=== PATIENT | female | born 1955 | race Caucasian/White ===

== ENCOUNTER 2019-04-25 11:27 | Day surgery (SDC) | payer MEDICARE, SELFPAY ==
[2019-04-22 11:04] VITALS: BMI 35.4
--- NOTE | 2019-04-22 11:16 | ANES.PREANES ---
Pre-Anesthetic Assessment Pre-Anesthetic Assessment: Height/Weight: Height 1.78 m Weight 112.037 kg Preop Diagnosis: Difficulty in swallowing Proposed Procedure: Operation Date: 04/25/19 12:15 Proposed Procedures s Lap Band Adjustment [id number] k21.9(Not Applicable) - Miller Cain MD p EGD(Not Applicable) - Miller Cain MD Exam: Pre-Anes Outpt Exam: alert and oriented x 3 GI: Comments: s/p gastic band placed 2011, # decrease in weight Metabolic: Metabolic: DM Comments: Rx'd x 18 years, normally 100-200 Anesthetic Plan: ASA status: III Anesthesia: MAC PFSH Anesthesia PFSH: Medical History (Updated 04/14/19 @ 10:09 by Miller Cain MD) Complication of gastric banding (Acute) Social History Smoking and tobacco status: never smoked Second hand smoke exposure: No Smoking risk assessment/counseling performed?: No Alcohol intake: never Desire information about alcohol rehabilitation?: No Counseling given: No Desire information about substance/drug rehabilitation?: No Counseling given: No Current gender identity: Male Data Anesthesia Cardiac Studies: No Data to Display
--- NOTE | 2019-04-25 | SCC_ITS ---
Procedure Done: Adjustment of gastric band and diagnostic EGD 5.3 seconds of fluoroscopic guidance, for a cumulative dose of 1.70 mGy, was provided to Dr. Cain by the radiology department. C-arm images of the abdomen were saved for the patient's permanent record. MTDD
--- NOTE | 2019-04-25 | XR_ITS ---
WS: [id number] C-ARM RADIOGRAPHS ABDOMEN; 2 IMAGES HISTORY: OR COMPARISON: None available. Intraoperative imaging during tube placement over the mid LEFT abdomen. XR/XR abdomen 1V* [id number] IMPRESSION: Intraoperative imaging during GI tract procedure.
[2019-04-25 11:42] VITALS: BP 135/88; PULSE 75; RESP 18; TEMP 36.6; O2SAT 97
[2019-04-25] MEDS: sodium chloride 0.9% 1,000 ML 30 ML IV (12:22)
--- NOTE | 2019-04-25 12:32 | PM.HPUD ---
H&P update H&P Update: DATE OF SURGERY/PROCEDURE: 04/25/19 DATE H&P PERFORMED: 04/14/19 H&P UPDATE INFORMATION: H&P completed within last 30 days and No changes to prior documentation PREOP DIAGNOSIS: Persistent nausea and vomiting associated with gastric band PLANNED PROCEDURE: Operation Date: 04/25/19 13:00 Proposed Procedures s Lap Band Adjustment [id number] k21.9(Not Applicable) - Miller Cain MD p EGD(Not Applicable) - Miller Cain MD Full H&P Medications/Allergies: Current Medications: Current Medications Generic Name Dose Route Start Last Admin Trade Name Freq PRN Reason Stop Dose Admin Sodium Chloride 1,000 mls @ 30 ml s/hr 04/25/19 12:15 04/25/19 12:22 Sodium Chloride 0.9% IV 04/26/19 12:14 30 mls/hr .Q24H DAVIAN Administration Perinent History: Medical/Surgical History: Medical History (Updated 04/14/19 @ 10:09 by Miller Cain MD) Complication of gastric banding (Acute) Family History: Family History (Updated 04/12/19 @ 08:56 by Roberta Abraham RN) Denies family history of Anesthesia complication Bleeding disorder Social History: Social History Smoking and tobacco status: never smoked Second hand smoke exposure: No Smoking risk assessment/counseling performed?: No Alcohol intake: never Desire information about alcohol rehabilitation?: No Counseling given: No Desire information about substance/drug rehabilitation?: No Counseling given: No Current gender identity: Male
[2019-04-25] MEDS: lidocaine 2% INJ 20 mL INJECTION (12:50)
--- NOTE | 2019-04-25 13:07 | PM.OP ---
Operative Report Date of procedure: 04/27/19 Pre-op Diagnosis: Persistent nausea and vomiting associated with gastric band Post-op diagnosis: same Post-op Findings: The band port contains 5 mL of saline Procedure Done: Adjustment of gastric band and diagnostic EGD Specimens removed/disposition: 5 mL from the port Surgeon: Miller Cain [employer] Room Service Supervisor: Drake Lane Circulating nurse genny Anesthesia: MAC (AUTO SERVICE REPRESENTATIVE Ej) Estimated blood loss (mL): 1 Complications: No immediate complications Findings: GE at 40 cm GERD AGB at 43 Condition: stable Disposition: same day Brief History: This is a pleasant 63 years old female patient with history of obesity, undergone few years ago a laparoscopic adjustable gastric band at outside facility, and patient has been struggling with persistent nausea and vomiting, last time she had adjustment of her band was a while ago and she does not recall how much fluid in her band. Patient was referred to my office for further evaluation. An attempt to aspirate the fluid from her band was done in the office bedside but that was not successful, as the port seemed to be deeper than expected, at that point I elected to have the patient come to the OR under C arm fluoroscopy and also to perform a diagnostic EGD. Patient had an upper GI study that showed no complications of her band Informed consent per chart for adjustment of gastric band and diagnostic EGD Procedure: Patient was identified in holding area, was taken to the operating room and was placed in supine position IV propofol was infused by the anesthesia provider Time-out was done verifying the patient's name and the procedure and all were in agreement After prep and drape of the upper abdomen under sterile technique, I attempted using a Villareal needle 1.5 inch connected to 10 mL syringe, under C arm with fluoroscopy guidance I was able to access the port, 5 mL were retrieved. Patient tolerated this part of the procedure well A Band-Aid was applied onto the site of introduction of the Villareal needle, were no complications Attention was then deviated to perform the diagnostic EGD after placing the patient in left lateral position, I did introduce the EGD via the mouth there was no evidence of band erosion onto the stomach. GE junction at 40 cm from the incisors, the band marked at 43 cm, and the rest of the examination of the stomach and duodenum was within normal limits except for mild GERD at the distal esophagus. Patient tolerated the procedure well And was taken to the recovery area in stable condition I was present for the whole entire procedure
[2019-04-25 13:08] VITALS: BP 133/80; PULSE 78; RESP 16; TEMP 36.8; O2SAT 97
[2019-04-25 13:13] VITALS: BP 116/62; PULSE 74; RESP 14; O2SAT 99
[2019-04-25 13:20] VITALS: BP 104/78; PULSE 70; RESP 13; TEMP 37.1; O2SAT 98
[2019-04-25 13:26] VITALS: BP 133/70; PULSE 68; RESP 18; TEMP 37.1; O2SAT 99
[2019-04-25 13:39] VITALS: BP 121/65; PULSE 70; RESP 18; O2SAT 98
[2019-04-25 14:18] LABS: Glucose Point of Care 169 mg/dL (70-110)
== END 2019-04-25 13:48 | disposition home or self-care (01) ==
PROVIDERS: Family Provider Nurse Practitioner Primary Care; PCP Nurse Practitioner Primary Care; Visit Provider Surgery
PROC: 0DJ08ZZ Inspection of Upper Intestinal Tract, Via Natural or Artificial Opening Endoscopic (ICD-10-PCS; CPT 43235; 2019-04-25 13:00)
PROC: (CPT 43999; 2019-04-25 13:00)
DX: K95.09 Other complications of gastric band procedure (principal); R11.2 Nausea with vomiting, unspecified
CPT/HCPCS: 43235; 43999; 12345; 36415; 36416; 74018; 76000; 82962; 96365; J2001; J2704; J7030

== ENCOUNTER → 2020-01-03 09:24 | Outpatient (BNVA) | payer MEDICARE, SELFPAY | PROVIDERS: Family Provider Nurse Practitioner Primary Care; PCP Nurse Practitioner Primary Care; Referring Provider Nurse Practitioner Primary Care; Visit Provider Orthopaedic Surgery | DX: M17.0 Bilateral primary osteoarthritis of knee (principal); M25.561 Pain in right knee; M25.562 Pain in left knee | CPT/HCPCS: 73560; 73565 ==

== ENCOUNTER → 2020-05-18 15:44 | Outpatient (BNVA) | payer MEDICARE, SELFPAY | PROVIDERS: Family Provider Nurse Practitioner Primary Care; PCP Nurse Practitioner Primary Care; Referring Provider Dermatology; Visit Provider Podiatrist Foot & Ankle Surgery | DX: M79.672 Pain in left foot (principal) | CPT/HCPCS: 73610; 73630 ==

== ENCOUNTER → 2020-08-30 08:39 | Outpatient (BNVA) | payer MEDICARE, SELFPAY | PROVIDERS: Family Provider Nurse Practitioner Primary Care; PCP Nurse Practitioner Primary Care; Visit Provider Podiatrist Foot & Ankle Surgery | DX: M79.672 Pain in left foot (principal); Z46.89 Encounter for fitting and adjustment of other specified devices; M76.62 Achilles tendinitis, left leg | CPT/HCPCS: 73610; 73630; 97760; L4397 ==

== ENCOUNTER 2020-08-30 11:12 | Outpatient (CLI) | payer MEDICARE, SELFPAY | END 2020-08-30 11:13 | disposition home or self-care (01) | LOC: SPT 11:13 | PROVIDERS: Family Provider Nurse Practitioner Primary Care; PCP Nurse Practitioner Primary Care; Visit Provider Podiatrist Foot & Ankle Surgery | DX: Z46.89 Encounter for fitting and adjustment of other specified devices (principal); M76.62 Achilles tendinitis, left leg | CPT/HCPCS: 97760; L4397 ==

== ENCOUNTER 2020-09-14 11:16 | Outpatient (CLI) | payer MEDICARE, SELFPAY ==
--- NOTE | 2020-09-14 11:25 | MM_ITS ---
WS: [id number] BILATERAL SCREENING DIGITAL MAMMOGRAM WITH CAD HISTORY: SCREENING COMPARISON: 02/02/2019 and 11/17/2018 and 03/07/2016 Bilateral CC and MLO views submitted. Computer aided detection analyzed. Breast composition: There are scattered areas of fibroglandular density. No suspicious masses, microc alcifications or architectural distortion. Benign calcifications in each breast. MM/[place] [id number] IMPRESSION: BI-RADS: 2-Benign FOLLOW UP: 1 Year Follow-up
== END 2020-09-14 11:17 | disposition home or self-care (01) ==
LOC: RADSHAW 11:21
PROVIDERS: Family Provider Nurse Practitioner Primary Care; PCP Nurse Practitioner Primary Care; Visit Provider Nurse Practitioner Primary Care
DX: Z12.31 Encounter for screening mammogram for malignant neoplasm of breast (principal)
CPT/HCPCS: 77067

== ENCOUNTER 2020-09-19 06:00 | Outpatient (RCR) | payer MEDICARE, SELFPAY | END 2020-10-03 23:59 | disposition home or self-care (01) | LOC: GPT 06:00 | PROVIDERS: Family Provider Nurse Practitioner Primary Care; PCP Nurse Practitioner Primary Care; Referring Provider Podiatrist Foot & Ankle Surgery; Visit Provider Podiatrist Foot & Ankle Surgery | DX: M76.62 Achilles tendinitis, left leg (principal) | CPT/HCPCS: 97032; 97110; 97112; 97161; 97530 ==

== ENCOUNTER 2020-10-04 06:00 | Outpatient (RCR) | payer MEDICARE, SELFPAY | END 2020-11-03 23:59 | disposition home or self-care (01) | LOC: GPT 06:00 | PROVIDERS: PCP Nurse Practitioner Primary Care; Referring Provider Podiatrist Foot & Ankle Surgery; Visit Provider Podiatrist Foot & Ankle Surgery | DX: M76.62 Achilles tendinitis, left leg (principal) | CPT/HCPCS: 97032; 97110; 97112; 97530 ==

== ENCOUNTER 2020-10-05 10:19 | Day surgery (SDC) | payer MEDICARE, SELFPAY ==
[2020-10-02 08:37] VITALS: BMI 35.9
--- NOTE | 2020-10-05 10:38 | ANES.PREANE2 ---
Pre-Anesthetic Assessment Pre-Anesthetic Assessment: Height/Weight: Height 1.78 m Weight 113.398 kg Preop Diagnosis: Family History of Colon cancer Proposed Procedure: Operation Date: 10/05/20 11:15 Proposed Procedures p Colonoscopy G0105 Z80.0(Not Applicable) - Adelfo Spaulding MD Was Beta Bj taken within 24 hours: N/A Was Clonidine taken within 24 hours: N/A Last intake: Intake Last Liquid Date 10/04/20 Last Liquid Time 23:00 Last Solid Date 10/03/20 Last Solid Time 23:00 Social: Social History: No alcohol and No tobacco Exam: Pre-Anes Outpt Exam: alert, oriented x 3, clear to auscultation bilaterally and regular rate & rhythm Airway: Submandibular: WNL Cervical ROM: WNL MP: 2 Dentition: Full Metabolic: Metabolic: DM and Morbid obesity Neuropsych: Neuropsych: Depression Anesthetic Plan: ASA status: 3 Anesthesia: MAC Risk of > 500 ml blood loss (7ml/kg in children): No PFSH Anesthesia PFSH: Medical History Anxiety Depression Diabetes Dysphagia GERD (gastroesophageal reflux disease) Hyperlipidemia Nausea and vomiting in adult Obesity Surgical History Complication of gastric banding History of colonoscopy (~03/2019) History of esophagogastroduodenoscopy (EGD) (03/2019) Hx of laparoscopic gastric banding (~2009) Family History Denies family history of Anesthesia complication Bleeding disorder Social History Smoking and tobacco status: never smoked Second hand smoke exposure: No Smoking risk assessment/counseling performed?: No Alcohol intake: never Desire information about alcohol rehabilitation?: No Counseling given: No Desire information about substance/drug rehabilitation?: No Counseling given: No Current gender identity: Male Data Anesthesia Cardiac Studies: No Data to Display
[2020-10-05 10:55] VITALS: BP 143/80; PULSE 50; RESP 18; TEMP 36.3; O2SAT 95
[2020-10-05 10:56] LABS: Glucose Point of Care 234 mg/dL (70-110)
[2020-10-05] MEDS: sodium chloride 0.9% 1,000 ML 30 ML IV (10:57)
--- NOTE | 2020-10-05 11:45 | W.PM.OPSFHP ---
Same Day Surgery H&P Indication for Procedure/HPI DATE OF PROCEDURE: October 05, 2020 CHIEF COMPLAINT/INDICATIONFOR SURGICAL PROCEDURE: Family history of colon cancer PREOP DIAGNOSIS: Family History of Colon cancer PLANNED PROCEDRUE: Operation Date: 10/05/20 11:15 Proposed Procedures p Colonoscopy G0105 Z80.0(Not Applicable) - Adelfo Spaulding MD Medications/Allergies* Home Medications Medication Instructions Recorded Confirmed Type cetirizine 10 mg tablet 10 mg PO ONCE tab 04/12/19 10/05/20 History fluoxetine 40 mg capsule 40 mg PO QAM 04/12/19 10/05/20 History insulin lispro 100 unit/mL 8 unit SUBCUT TID ml 08/01/20 10/05/20 History subcutaneous pen cyanocobalamin (vitamin B-12) 1,000 mcg PO DAILY 09/17/20 10/05/20 History 1,000 mcg tablet glipizide 5 mg tablet 10 mg PO BID tab 09/17/20 10/05/20 History metformin 500 mg tablet 1,000 mg PO ONCE tab 09/17/20 10/05/20 History nitroglycerin 0.4 mg sublingual 0.4 mg SUBLINGUAL Q5M PRN 09/17/20 10/05/20 History tablet oxybutynin chloride 5 mg tablet 5 mg PO DAILY 09/17/20 10/05/20 History Allergies/Adverse Reactions Allergy/AdvReac Type Severity Reaction Status Date / Time Bpepfdk-Srv-Uou Reductase Allergy Severe increases Verified 09/26/20 10:28 Inhibitor kidney functions Current Medications: Generic Name Dose Route Start Last Admin Trade Name Freq PRN Reason Stop Dose Admin Sodium Chloride 1,000 mls @ 30 mls/hr 10/05/20 10:30 10/05/20 10:57 Sodium Chloride 0.9% IV 30 mls/hr .Q24H DAVIAN Administration Pertinent History/Comorbid Conditions* Medical History (Updated 09/26/20 @ 10:55 by Adelfo Spaulding MD) Anxiety Depression Diabetes Dysphagia GERD (gastroesophageal reflux disease) Hyperlipidemia Nausea and vomiting in adult Obesity Surgical History (Updated 05/22/20 @ 18:59 by Dylon Morrison DPM) Complication of gastric banding History of colonoscopy (~03/2019) History of esophagogastroduodenoscopy (EGD) (03/2019) Hx of laparoscopic gastric banding (~2009) Family History (Updated 04/12/19 @ 08:56 by Roberta Abraham RN) Denies family history of Anesthesia complication Bleeding disorder Social History Smoking and tobacco status: never smoked Second hand smoke exposure: No Smoking risk assessment/counseling performed?: No Alcohol intake: never Desire information about alcohol rehabilitation?: No Counseling given: No Desire information about substance/drug rehabilitation?: No Counseling given: No Current gender identity: Male Pertinent Exam Findings alert, oriented x 3, clear to auscultation bilaterally, regular rate & rhythm, operative site marked and procedure specific exam findings Recommendations Surgery/Procedure today Coding Level of Care Code Acute Validation Analyst for Devonte Sainz
[2020-10-05 12:11] VITALS: BP 121/73; PULSE 52; RESP 18; TEMP 36.1; O2SAT 100
[2020-10-05 12:24] VITALS: BP 118/72; PULSE 57; RESP 16; O2SAT 97
--- NOTE | 2020-10-05 15:25 | ANE.PACU2 ---
Inpatient post-anesthesia follow up: Airway intact: Yes Vital signs: Temperature 97 F Pulse Rate 57 Respiratory Rate 16 Blood Pressure 118/72 Pulse Oximetry 97 Oxygen Delivery Me thod Room Air Oxygen Flow Rate Fraction of Inspir ed Oxygen Hydration adequate: Yes Nausea and vomiting: No Pain level: 1 Mental status: Baseline
== END 2020-10-05 12:51 | disposition home or self-care (01) ==
PROVIDERS: PCP Nurse Practitioner Primary Care; Visit Provider Internal Medicine
PROC: 0DJD8ZZ Inspection of Lower Intestinal Tract, Via Natural or Artificial Opening Endoscopic (ICD-10-PCS; CPT 45378; principal; 2020-10-05 11:15)
DX: Z12.11 Encounter for screening for malignant neoplasm of colon (principal); Z80.0 Family history of malignant neoplasm of digestive organs; K57.30 Diverticulosis of large intestine without perforation or abscess without bleeding; E11.9 Type 2 diabetes mellitus without complications; Z79.84 Long term (current) use of oral hypoglycemic drugs; E78.5 Hyperlipidemia, unspecified; E66.9 Obesity, unspecified; Z68.35 Body mass index [BMI] 35.0-35.9, adult; E66.01 Morbid (severe) obesity due to excess calories
CPT/HCPCS: 36416; 45378; 82962; 96360; J2704; J7030

== ENCOUNTER → 2021-09-25 14:02 | Outpatient (BNVA) | payer MEDICARE, SELFPAY | PROVIDERS: PCP Nurse Practitioner Primary Care; Referring Provider Nurse Practitioner Primary Care; Visit Provider Internal Medicine | DX: E11.9 Type 2 diabetes mellitus without complications (principal); E78.2 Mixed hyperlipidemia; Z85.42 Personal history of malignant neoplasm of other parts of uterus; Z80.9 Family history of malignant neoplasm, unspecified; Z79.84 Long term (current) use of oral hypoglycemic drugs; Z79.4 Long term (current) use of insulin | CPT/HCPCS: 99204 ==

== ENCOUNTER → 2021-11-20 09:07 | Outpatient (BNVA) | payer MEDICARE, SELFPAY | PROVIDERS: PCP Nurse Practitioner Primary Care; Visit Provider Internal Medicine | DX: E11.9 Type 2 diabetes mellitus without complications (principal) | CPT/HCPCS: 80053; 80061; 83036 ==

== ENCOUNTER → 2021-11-27 12:39 | Outpatient (BNVA) | payer MEDICARE, SELFPAY | PROVIDERS: PCP Nurse Practitioner Primary Care; Visit Provider Internal Medicine | DX: E11.9 Type 2 diabetes mellitus without complications (principal); E78.2 Mixed hyperlipidemia; Z85.42 Personal history of malignant neoplasm of other parts of uterus; Z80.9 Family history of malignant neoplasm, unspecified; Z79.4 Long term (current) use of insulin; Z79.84 Long term (current) use of oral hypoglycemic drugs | CPT/HCPCS: 99214 ==

== ENCOUNTER → 2022-02-19 10:16 | Outpatient (BNVA) | payer MEDICARE, SELFPAY | PROVIDERS: PCP Nurse Practitioner Primary Care; Visit Provider Internal Medicine | DX: E11.9 Type 2 diabetes mellitus without complications (principal); E78.2 Mixed hyperlipidemia; Z80.9 Family history of malignant neoplasm, unspecified; Z85.42 Personal history of malignant neoplasm of other parts of uterus | CPT/HCPCS: 80061; 83036; 86200 ==

== ENCOUNTER → 2022-03-03 13:08 | Outpatient (BNVA) | payer MEDICARE, SELFPAY | PROVIDERS: PCP Nurse Practitioner Primary Care; Visit Provider Internal Medicine | DX: E11.9 Type 2 diabetes mellitus without complications (principal); E78.2 Mixed hyperlipidemia; R63.5 Abnormal weight gain; Z85.42 Personal history of malignant neoplasm of other parts of uterus; Z68.39 Body mass index [BMI] 39.0-39.9, adult; Z87.440 Personal history of urinary (tract) infections; Z79.4 Long term (current) use of insulin; Z79.84 Long term (current) use of oral hypoglycemic drugs | CPT/HCPCS: 99214 ==

== ENCOUNTER → 2022-05-28 10:55 | Outpatient (BNVA) | payer MEDICARE, SELFPAY | PROVIDERS: PCP Nurse Practitioner Primary Care; Visit Provider Internal Medicine | DX: E11.9 Type 2 diabetes mellitus without complications (principal); E78.2 Mixed hyperlipidemia; R63.5 Abnormal weight gain | CPT/HCPCS: 80053; 80061; 82043; 83036; 84439; 84443 ==

== ENCOUNTER → 2022-06-03 14:05 | Outpatient (BNVA) | payer MEDICARE, SELFPAY | PROVIDERS: PCP Nurse Practitioner Primary Care; Visit Provider Internal Medicine | DX: E11.9 Type 2 diabetes mellitus without complications (principal); R63.5 Abnormal weight gain; E78.2 Mixed hyperlipidemia; Z85.42 Personal history of malignant neoplasm of other parts of uterus; Z80.9 Family history of malignant neoplasm, unspecified; Z79.4 Long term (current) use of insulin; Z79.84 Long term (current) use of oral hypoglycemic drugs; Z68.41 Body mass index [BMI] 40.0-44.9, adult | CPT/HCPCS: 99214 ==

== ENCOUNTER 2022-06-23 14:06 | Outpatient (CLI) | payer MEDICARE, SELFPAY ==
--- NOTE | 2022-06-23 14:30 | XR_ITS ---
WS: [id number] SCREENING DEXA SCAN [employer] CLINICAL INFORMATION: Z78.0 - Asymptomatic menopausal state COMPARISON: None. FINDINGS: The L1-L4 bone mineral density measures 1.184 g/cm2. This corresponds to a T score score of 0.0 and Z score of 0.5. Left femoral neck bone mineral density measures 0.938 g/cm2. This corresponds to a T score of -0.6 an d Z score of 0.0. Right femoral neck bone mineral density measures 0.946 g/cm2. This corresponds to a T score -0.5of an d Z score of 0.1. Mean femoral neck bone mineral density measures 0.942 g/cm2. This corresponds to a T score of -0.5 an d Z score of 0.0. XR/XR DEXA axial skeleton* [id number] IMPRESSION: Normal bone mineralization. Patient's FRAX calculated 10 year probability for major osteoporotic fracture i s 7.9 % and osteoporotic hip fracture is 0.7%.
== END 2022-06-23 14:07 | disposition home or self-care (01) ==
LOC: RAD 14:09
PROVIDERS: PCP Nurse Practitioner Family; Visit Provider Nurse Practitioner Family
DX: Z78.0 Asymptomatic menopausal state (principal)
CPT/HCPCS: 77080

== ENCOUNTER → 2022-09-02 09:52 | Outpatient (BNVA) | payer MEDICARE, SELFPAY | PROVIDERS: PCP Nurse Practitioner Family; Visit Provider Internal Medicine | DX: E11.9 Type 2 diabetes mellitus without complications (principal) | CPT/HCPCS: 80053; 80061; 82043; 83036 ==

== ENCOUNTER → 2022-09-08 14:24 | Outpatient (BNVA) | payer MEDICARE, SELFPAY | PROVIDERS: PCP Nurse Practitioner Family; Visit Provider Internal Medicine | DX: R63.5 Abnormal weight gain (principal); E78.2 Mixed hyperlipidemia; E11.9 Type 2 diabetes mellitus without complications; Z85.42 Personal history of malignant neoplasm of other parts of uterus; Z80.9 Family history of malignant neoplasm, unspecified; Z68.41 Body mass index [BMI] 40.0-44.9, adult; Z79.4 Long term (current) use of insulin | CPT/HCPCS: 99214 ==

== ENCOUNTER → 2022-12-02 17:04 | Outpatient (BNVA) | payer MEDICARE, SELFPAY | PROVIDERS: PCP Nurse Practitioner Family; Visit Provider Internal Medicine | DX: E11.9 Type 2 diabetes mellitus without complications (principal); E78.2 Mixed hyperlipidemia | CPT/HCPCS: 80053; 80061; 82043; 83036 ==

== ENCOUNTER → 2022-12-09 13:41 | Outpatient (BNVA) | payer MEDICARE, SELFPAY | PROVIDERS: PCP Nurse Practitioner Family; Visit Provider Nurse Practitioner Family | DX: J02.9 Acute pharyngitis, unspecified (principal); N23 Unspecified renal colic; R50.9 Fever, unspecified; N39.0 Urinary tract infection, site not specified; R31.9 Hematuria, unspecified; R07.0 Pain in throat | CPT/HCPCS: 81003; 87071; 87077; 87086; 87184; 87400; 87426; 87880 ==

== ENCOUNTER → 2022-12-11 11:15 | Outpatient (BNVA) | payer MEDICARE, SELFPAY | PROVIDERS: PCP Nurse Practitioner Family; Visit Provider Internal Medicine | DX: E11.9 Type 2 diabetes mellitus without complications (principal); R63.5 Abnormal weight gain; E78.2 Mixed hyperlipidemia; Z85.42 Personal history of malignant neoplasm of other parts of uterus; Z80.9 Family history of malignant neoplasm, unspecified; Z79.4 Long term (current) use of insulin; Z68.41 Body mass index [BMI] 40.0-44.9, adult; Z79.84 Long term (current) use of oral hypoglycemic drugs | CPT/HCPCS: 99214 ==

== ENCOUNTER → 2022-12-24 13:42 | Outpatient (BNVA) | payer MEDICARE, SELFPAY | PROVIDERS: PCP Nurse Practitioner Family; Visit Provider Nurse Practitioner Family | DX: R30.9 Painful micturition, unspecified (principal) | CPT/HCPCS: 81000; 81003; 87077; 87086; 87184 ==

== ENCOUNTER → 2023-03-10 13:51 | Outpatient (BNVA) | payer MEDICARE, SELFPAY | PROVIDERS: PCP Nurse Practitioner Family; Visit Provider Nurse Practitioner Family | DX: E11.9 Type 2 diabetes mellitus without complications (principal); R63.5 Abnormal weight gain; E78.2 Mixed hyperlipidemia; Z85.42 Personal history of malignant neoplasm of other parts of uterus; Z80.9 Family history of malignant neoplasm, unspecified; Z79.4 Long term (current) use of insulin; F34.1 Dysthymic disorder | CPT/HCPCS: 80053; 80061; 82043; 83036 ==

== ENCOUNTER → 2023-03-13 08:31 | Outpatient (BNVA) | payer MEDICARE, SELFPAY | PROVIDERS: PCP Nurse Practitioner Family; Visit Provider Internal Medicine | DX: E11.9 Type 2 diabetes mellitus without complications (principal); Z79.4 Long term (current) use of insulin; R63.5 Abnormal weight gain; E78.2 Mixed hyperlipidemia; Z68.41 Body mass index [BMI] 40.0-44.9, adult | CPT/HCPCS: 99214 ==

== ENCOUNTER → 2023-06-23 10:04 | Outpatient (BNVA) | payer MEDICARE, SELFPAY | PROVIDERS: PCP Nurse Practitioner Family; Visit Provider Nurse Practitioner Family | DX: Z79.4 Long term (current) use of insulin (principal); E11.9 Type 2 diabetes mellitus without complications | CPT/HCPCS: 80053; 80061; 82043; 83036 ==

== ENCOUNTER → 2023-08-26 08:29 | Outpatient (BNVA) | payer MEDICARE, SELFPAY | PROVIDERS: PCP Nurse Practitioner Family; Visit Provider Internal Medicine | DX: E11.9 Type 2 diabetes mellitus without complications (principal); Z79.4 Long term (current) use of insulin; R63.5 Abnormal weight gain; E78.2 Mixed hyperlipidemia; Z85.42 Personal history of malignant neoplasm of other parts of uterus; Z80.9 Family history of malignant neoplasm, unspecified; Z68.36 Body mass index [BMI] 36.0-36.9, adult | CPT/HCPCS: 99214 ==

== ENCOUNTER → 2023-10-13 13:29 | Outpatient (BNVA) | payer MEDICARE, SELFPAY | PROVIDERS: PCP Nurse Practitioner Family; Visit Provider Nurse Practitioner Family | DX: R30.9 Painful micturition, unspecified (principal); R32 Unspecified urinary incontinence | CPT/HCPCS: 81000; 87077; 87086; 87184 ==

== ENCOUNTER → 2023-10-21 09:20 | Outpatient (BNVA) | payer MEDICARE, SELFPAY | PROVIDERS: PCP Nurse Practitioner Family; Visit Provider Nurse Practitioner Family | DX: N94.89 Other specified conditions associated with female genital organs and menstrual cycle (principal); R32 Unspecified urinary incontinence; I10 Essential (primary) hypertension | CPT/HCPCS: 81000; 87070; 87205 ==

== ENCOUNTER → 2023-11-26 10:03 | Outpatient (BNVA) | payer MEDICARE, SELFPAY | PROVIDERS: PCP Nurse Practitioner Family; Visit Provider Internal Medicine | DX: Z79.4 Long term (current) use of insulin (principal); E11.9 Type 2 diabetes mellitus without complications; E78.2 Mixed hyperlipidemia | CPT/HCPCS: 80053; 80061; 82043; 83036 ==

== ENCOUNTER → 2023-12-01 08:52 | Outpatient (BNVA) | payer MEDICARE, SELFPAY | PROVIDERS: PCP Nurse Practitioner Family; Visit Provider Internal Medicine | DX: E11.9 Type 2 diabetes mellitus without complications (principal); Z79.4 Long term (current) use of insulin; E78.2 Mixed hyperlipidemia; R63.5 Abnormal weight gain; Z85.42 Personal history of malignant neoplasm of other parts of uterus; Z80.9 Family history of malignant neoplasm, unspecified; Z68.38 Body mass index [BMI] 38.0-38.9, adult | CPT/HCPCS: 99214 ==

== ENCOUNTER → 2024-06-01 08:14 | Outpatient (BNVA) | payer MEDICARE, SELFPAY | PROVIDERS: PCP Nurse Practitioner Family; Visit Provider Internal Medicine | DX: Z79.4 Long term (current) use of insulin (principal); E11.9 Type 2 diabetes mellitus without complications; E78.2 Mixed hyperlipidemia | CPT/HCPCS: 80053; 80061; 82043; 83036 ==

== ENCOUNTER → 2024-06-06 12:09 | Outpatient (BNVA) | payer MEDICARE, SELFPAY | PROVIDERS: PCP Nurse Practitioner Family; Visit Provider Internal Medicine | DX: E11.9 Type 2 diabetes mellitus without complications (principal); Z79.4 Long term (current) use of insulin; R63.5 Abnormal weight gain; E78.2 Mixed hyperlipidemia; Z85.42 Personal history of malignant neoplasm of other parts of uterus; Z80.9 Family history of malignant neoplasm, unspecified | CPT/HCPCS: 99214 ==

== ENCOUNTER → 2024-09-07 08:22 | Outpatient (BNVA) | payer MEDICARE, SELFPAY | PROVIDERS: PCP Nurse Practitioner Family; Visit Provider Internal Medicine | DX: E11.9 Type 2 diabetes mellitus without complications (principal); Z79.4 Long term (current) use of insulin; R63.5 Abnormal weight gain; E78.2 Mixed hyperlipidemia; Z85.42 Personal history of malignant neoplasm of other parts of uterus; Z80.9 Family history of malignant neoplasm, unspecified | CPT/HCPCS: 80053; 80061; 82043; 83036 ==

== ENCOUNTER → 2024-09-12 11:29 | Outpatient (BNVA) | payer MEDICARE, SELFPAY | PROVIDERS: PCP Nurse Practitioner Family; Visit Provider Internal Medicine | DX: E11.9 Type 2 diabetes mellitus without complications (principal); Z79.4 Long term (current) use of insulin; E78.2 Mixed hyperlipidemia | CPT/HCPCS: 99214 ==

== ENCOUNTER 2024-10-03 12:19 | Outpatient (CLI) | payer MEDICARE, SELFPAY ==
--- NOTE | 2024-10-03 13:00 | MM_ITS ---
WS: [id number] BILATERAL 3D TOMOSYNTHESIS DIGITAL SCREENING MAMMOGRAPHY WITH CAD CLINICAL INFORMATION: Z12.39 - Encounter for other screening for malignant neop... HISTORY: Screening mammogram. No current complaints. COMPARISON: 2020 TECHNIQUE: Bilateral CC and MLO views. FINDINGS: Scattered fibroglandular densities bilaterally. No suspicious focal mass, asymmetry, calcifications, or architectural distortion. No evidence of malignancy. Vascular calcification MM/MM scr BI tomosynthesis [id number] IMPRESSION: DENSITY: There are scattered areas of fibroglandular density. BI-RADS: 2 - Benign. FOLLOW UP: 1 Year Follow-up Recommend return to annual screening mammography.
--- NOTE | 2024-10-03 13:30 | XR_ITS ---
WS: [id number] SCREENING DEXA SCAN [employer] CLINICAL INFORMATION: Z78.0 - Asymptomatic menopausal state COMPARISON: 2022 FINDINGS: The L1-L4 bone mineral density measures 1.233 g/cm2. This corresponds to a T score score of 0.4 and Z score of 1.0. Left femoral neck bone mineral density measures 0.930 g/cm2. This corresponds to a T score of -0.6 and Z score of 0.1. Right femoral neck bone mineral density measures 0.915 g/cm2. This corresponds to a T score -0.7of and Z score of -0.1. Mean femoral neck bone mineral density measures 0.923 g/cm2. This corresponds to a T score of -0.7 and Z score of 0.0. XR/XR DEXA axial skeleton* [id number] IMPRESSION: Normal bone mineralization lumbar spine. Normal bone mineralization of femoral necks. Patient's FRAX calculated 10 year probability for major osteoporotic fracture i s 9.8% and osteoporotic hip fracture is 1.6%. Lumbar spine bone mineral density increased 4.1% Femoral necks bone mineral density decreased -2.0%
== END 2024-10-03 12:20 | disposition home or self-care (01) ==
LOC: RAD 12:20
PROVIDERS: PCP Nurse Practitioner Family; Visit Provider Nurse Practitioner Family
DX: Z12.31 Encounter for screening mammogram for malignant neoplasm of breast (principal); Z78.0 Asymptomatic menopausal state; R92.323 Mammographic fibroglandular density, bilateral breasts; R92.1 Mammographic calcification found on diagnostic imaging of breast
CPT/HCPCS: 77063; 77067; 77080

== ENCOUNTER → 2024-12-14 08:31 | Outpatient (BNVA) | payer MEDICARE, SELFPAY | PROVIDERS: PCP Nurse Practitioner Family; Visit Provider Nurse Practitioner Family | DX: E11.9 Type 2 diabetes mellitus without complications (principal); Z79.4 Long term (current) use of insulin; R63.5 Abnormal weight gain; Z80.9 Family history of malignant neoplasm, unspecified; Z85.42 Personal history of malignant neoplasm of other parts of uterus; E78.2 Mixed hyperlipidemia | CPT/HCPCS: 80053; 80061; 82043; 83036 ==

== ENCOUNTER → 2024-12-19 10:57 | Outpatient (BNVA) | payer MEDICARE, SELFPAY | PROVIDERS: PCP Nurse Practitioner Family; Visit Provider Internal Medicine | DX: E11.9 Type 2 diabetes mellitus without complications (principal); R63.5 Abnormal weight gain; E78.2 Mixed hyperlipidemia; Z85.42 Personal history of malignant neoplasm of other parts of uterus; Z80.9 Family history of malignant neoplasm, unspecified; Z79.4 Long term (current) use of insulin | CPT/HCPCS: 99214 ==

== ENCOUNTER → 2025-03-13 09:50 | Outpatient (BNVA) | payer MEDICARE, SELFPAY | PROVIDERS: PCP Nurse Practitioner Family; Visit Provider Nurse Practitioner Family | DX: E11.9 Type 2 diabetes mellitus without complications (principal); Z79.4 Long term (current) use of insulin; M79.642 Pain in left hand; R22.32 Localized swelling, mass and lump, left upper limb; M19.042 Primary osteoarthritis, left hand | CPT/HCPCS: 73130; 80053; 80061; 82043; 83036 ==